=== PATIENT | male | born 1945 | race Caucasian/White ===

== ENCOUNTER 2022-02-25 15:30 | Emergency (ER) | payer OTHER ==
[~2022-02-25] VITALS: Ht 195.6 cm; Wt 108.9 kg
[2022-02-25 15:45] VITALS: BP_SYST 146
--- NOTE | 2022-02-25 17:00 | NUR ---
ER DR GOLDBERG EXAMINING PT IN WR
[2022-02-25] MEDS ORDERED: METOCLOPRAMIDE HCL 10 MG/2 ML VIAL IVP ONE ×2 (17:15→19:45)
[2022-02-25] MEDS ORDERED: MECLIZINE HCL 25 MG TABLET (ANITVERT) PO ONE (17:15)
[2022-02-25 17:25] LABS: BASOPHILS % (AUTO) 0.5 % (0.0-2.0); EOSINOPHILS # (AUTO) 0.1 K/uL (0.0-0.4); EOSINOPHILS % (AUTO) 1.1 % (0.0-4.0); HEMATOCRIT 39.1 % (36-54); HEMOGLOBIN 13.3 g/dL (14.0-18.0); LYMPHOCYTES % (AUTO) 19.8 % (20.5-51.5); MEAN CORPUSCULAR HEMOGLOBIN 32 pg (27-31); MEAN CORPUSCULAR HGB CONC 34 % (32-36); MEAN CORPUSCULAR VOLUME 94 fL (79.0-98.0); MONOCYTES # (AUTO) 0.4 K/uL (0.0-1.0); MONOCYTES % (AUTO) 8.3 % (1.7-9.3); NEUTROPHILS # (AUTO) 3.7 K/uL (1.8-7.7); NEUTROPHILS % (AUTO) 70.3 % (40.0-70.0); PLATELET COUNT (AUTO) 196 K/uL (130-430); RED BLOOD CELL COUNT(AUTO) 4.17 MIL/uL (4.2-6.2); RED CELL DISTRIBUTION WIDTH 13.8 % (9.0-15.0); WHITE BLOOD COUNT (AUTO) 5.2 K/uL (4.8-10.8)
[2022-02-25 17:35] LABS: ANION GAP 6 (5-15); CALCIUM 9.1 mg/dL (8.4-11.0); CHLORIDE 104 mmol/L (98-107); CREATININE 1.19 mg/dL (0.55-1.30); GLUCOSE 101 mg/dL (70-99); POTASSIUM 4.4 mmol/L (3.5-5.1); SODIUM SERUM 139 mmol/L (136-145); UREA NITROGEN, BLOOD 18 mg/dL (8-21)
[2022-02-25 17:44] LABS: ALANINE AMINOTRANSFERASE 36 U/L (12-78); ALBUMIN 3.4 g/dL (3.4-4.8); ASPARTATE AMINOTRANSFERASE 22 U/L (10-37); TOTAL BILIRUBIN 0.8 mg/dL (0.0-1.0)
--- NOTE | 2022-02-25 17:50 | NUR ---
Placed in room 3 . Placed on traffic monitor specialist, blood pressure machine and pulse oximeter. To gown for exam. Side rails up.
--- NOTE | 2022-02-25 17:55 | NUR ---
PT CAME IN FROM HOME C/O DIZZINESS SINCE YESTERDAY AFTERNOON. REPORTS GOING TO URGENT CARE TODAY, RECEIVED ANTIVERT PO THERE WHICH IMPROVED HIS DIZZINESS. HE WAS THEN REFERRED HERE FOR FURTHER WORK UP. PT ACCOMPANIED BY , [id number], AMBULATORY, S
--- NOTE | 2022-02-25 19:10 | NUR ---
REPORT GIVEN TO TRICIA SULLIVAN
--- NOTE | 2022-02-25 19:10 | NUR ---
Report received from Nereida CLARKE
--- NOTE | 2022-02-25 19:20 | NUR ---
Pt resting in bed at this time with at bedside. Pt states "the room is no longer spinning, but I do have a bit of pressure to the front of my head". No signs of acute distress. Bed in low position. Side rails up. Normal skin color for ethnicity. Pt denies nausea/vomiting.
--- NOTE | 2022-02-25 19:29 | NUR ---
# 22 gauge angiocath placed to left AC. Use of aseptic technique. Opsite placed over site. Blood return noted. Blood for lab drawn from site. Flushed with 10 cc of normal saline. No evidence of infiltration noted. Patient tolerated well.
[2022-02-25] MEDS ORDERED: MECL-261 PO (20:27)
--- NOTE | 2022-02-25 20:34 | NUR ---
Patient given written and verbal discharge instructions and verbalizes understanding. ER MD discussed with patient the results and treatment provided. Patient in stable condition. ID arm band removed. IV catheter removed intact and dressing applied, no active bleeding. Rx of meclizine given. Patient educated on pain management and to follow up with PMD. Pain Scale 0/10. Opportunity for questions provided and answered. Medication side effect fact sheet provided.
[2022-02-25 20:35] VITALS: BP_SYST 151
== END 2022-02-25 20:35 | disposition home or self-care (01) ==
LOC: SED 15:30
DX: R42 Dizziness and giddiness (principal); R11.10 Vomiting, unspecified; Z91.041 Radiographic dye allergy status
CPT/HCPCS: 99285; 96374; 70450; 71045; 80053; 85025; 84484; 36415; 93005; 76376; J8597; J2765